=== PATIENT | male | born 2000 | race Caucasian/White ===

== ENCOUNTER 2019-07-07 10:05 | Emergency (ER) | payer BC ==
--- NOTE | 2019-07-07 10:29 | UC ---
HPI Wound/Suture Re-check - HPI Summary HPI Summary: 18-year-old male presenting with need for suture removal from his lower front gums. I spoke with the patient's oral surgeon earlier who states the stitches were placed 2 weeks ago and need to be taken out to decrease risk of infection. Patient denies fever and chills. Denies pain but states the sutures feel tight. Denies any drainage that he has noticed. Denies bleeding. Denies swelling. Patient states he was on approximately 10 days of amoxicillin after the sutures were placed. - History Of Current Complaint Chief Complaint: UCLaceration Stated Complaint: SUTURE REMOVAL Hx Obtained From: Patient Pain Intensity: 1 Pain Scale Used: 0-10 Numeric - Allergies/Home Medications Allergies/Adverse Reactions: Allergies Allergy/AdvReac Type Severity Reaction Status Date / Time scallops Allergy Vomiting Verified 07/07/19 10:21 Home Medications: Home Medications Amoxicillin PO (*) [Amoxicillin 875 MG (*)] 875 mg PO BID #10 tab 07/07/19 [Rx] Butalbit/Acetamin/Caff/Codeine 1 tab PO DAILY PRN 07/07/19 [History Confirmed ] Fluoxetine HCl [Prozac] 200 mg PO DAILY 07/07/19 [History Confirmed 07/07/19] Naproxen [Naprosyn 500 mg tab] 1 tab PO DAILY PRN 07/07/19 [History Confirmed ] busPIRone TAB* [Buspar TAB*] 1 tab PO DAILY 07/07/19 [History Confirmed 07/07/19 ] PMH/Surg Hx/FS Hx/Imm Hx - Surgical History Surgical History: Yes Surgery Procedure, Year, and Place: [id number] - Social History Alcohol Use: Occasionally Substance Use Type: Marijuana Smoking Status (MU): Never Smoked Tobacco Review of Systems All Other Systems Reviewed And Are Negative: Yes Constitutional: Positive: Negative Skin: Positive: Negative ENT: Positive: Dental Pain - sutures lower gums that "feel tight" and need removed Respiratory: Positive: Negative Cardiovascular: Positive: Negative Gastrointestinal: Positive: Negative Musculoskeletal: Positive: Negative Neurological/Mental Status: Positive: Negative Physical Exam - Summary Physical Exam Summary: Vital Signs Reviewed: Yes A+Ox3, no distress Eyes: Conjunctiva Clear ENT: Hearing grossly normal Dental exam: 4 intact sutures noted in lower vestibule, nonbleeding, scant purulent drainage from one suture, no fluctuance, mild TTP neck: supple Respiratory: Positive: No respiratory distress, No accessory muscle use Cardiovascular: skin color reflect adequate perfusion Musculoskeletal Exam: ARELLANO x 4 without difficulty Neurological: Positive: Alert, ambulatory without difficulty Psychological: Positive: age appropriate behavior Skin: Positive: no rash, no ecchymosis Vital Signs: Initial Vital Signs Temp 97.9 F 07/07/19 10:16 Pulse 75 07/07/19 10:16 Resp 16 07/07/19 10:16 BP 143/80 07/07/19 10:16 Pulse Ox 96 07/07/19 10:16 Course/Dx - Course Course Of Treatment: I removed 5 sutures from the patient's lower gums. There was scant drainage noted from one of the suture so I placed the patient on amoxicillin again x5 days. Instructed to continue with symptomatic treatment and to return with any new or worsening symptoms. Patient voiced understanding and agreed with treatment plan. - Diagnosis Provider Diagnosis: Encounter for removal of sutures, Dental infection Discharge ED - Sign-Out/Discharge Documenting (check all that apply): Patient Departure All imaging exams completed and their final reports reviewed: No Studies - Discharge Plan Condition: Stable Disposition: HOME Prescriptions: Amoxicillin PO (*) [Amoxicillin 875 MG (*)] 875 mg PO BID #10 tab Referrals: No Primary Care Phys,NOPCP [Primary Care Provider] - Additional Instructions: Your sutures were removed today. Take amoxicillin as prescribed. You may gargle with warm salt water twice daily. You may take over the counter pain medications as directed for pain relief. Return if you experience any new or worsening symptoms. - Billing Disposition and Condition Condition: STABLE Disposition: Home
[2019-07-07] MEDS ORDERED: Lidocaine 2% VISCOUS* 15 ML UDC ONE (10:33)
== END 2019-07-07 11:18 | disposition home or self-care (01) ==
LOC: UCEAST 10:05
DX: K04.7 Periapical abscess without sinus (principal); Z48.1 Encounter for planned postprocedural wound closure; Z91.013 Allergy to seafood
CPT/HCPCS: 99202; G0463